=== PATIENT | male | born 1980 | race Caucasian/White ===

== ENCOUNTER 2016-06-16 09:24 | Emergency (ER) | payer OTHER ==
[~2016-06-16] VITALS: Ht 170.2 cm; Wt 68.0 kg
[~2016-06-16 09:24] MED LIST: ATIVAN1 MG PO; CELEXA10 MG PO; DEPAKENE250 MG/5 M PO; DILANTIN; DILANTIN100 M1 PO; DILANTIN100 MG PO; KEPPRA100 MG/ML PO; KEPPRA1000 MG PO; KEPPRA500 MG; KEPPRA750 MG PO; LEVAQUIN750 MG PO; PAROXETINE20 MG PO; PROPANOLOL; PROPRANOLOL ER80 MG PO; TEGRETOL; TEGRETOL200 M1 PO; TEGRETOL200 MG PO; TOPAMAX25 M1 PO
[2016-06-16 09:29] VITALS: BP 123/82
--- NOTE | 2016-06-16 09:29 | NUR ---
PT BIBA TO BED 5 AT THIS TIME.
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
[2016-06-16] MEDS ORDERED: NACL 0.9% 1,000 ML IV ONE (10:50)
[2016-06-16 14:57] VITALS: BP 120/67
--- NOTE | 2016-06-16 14:57 | NUR ---
Patient discharged with v/s stable. Written and verbal after care instructions given and explained to parent. Parent verbalized understanding. Wheel Chair Assisted with by parent. All questions addressed prior to discharge. Advised to follow up with PMD.
[2016-10-01] MEDS ORDERED: LEVAQUIN750 MG PO (13:57)
== END 2016-06-16 14:57 | disposition home or self-care (01) ==
LOC: MED 09:24
DX: R56.9 Unspecified convulsions (principal); E87.1 Hypo-osmolality and hyponatremia; Z91.013 Allergy to seafood; Z79.899 Other long term (current) drug therapy
CPT/HCPCS: 36415; 70450; 80053; 85025; 96360; 96361; 99285; J7030

== ENCOUNTER 2016-07-06 08:59 | Emergency (ER) | payer OTHER ==
[~2016-07-06] VITALS: Ht 177.8 cm; Wt 79.4 kg
--- NOTE | 2016-07-06 08:59 | NUR ---
Patient BIBA ACLS, transferred to bed 2. RN evaluating patient at bedside.
[2016-07-06 09:01] VITALS: BP 124/70
--- NOTE | 2016-07-06 09:01 | NUR ---
Dr. Salas evaluating patient at bedside.
[2016-07-06] MEDS ORDERED: NACL 0.9% 1,000 ML IV SCH (09:04)
--- NOTE | 2016-07-06 09:41 | NUR ---
PT TO CT
--- NOTE | 2016-07-06 09:55 | NUR ---
RETURNED FROM CT---LAB AT BEDSIDE
--- NOTE | 2016-07-06 10:42 | NUR ---
MOTHER AT BEDSIDE---REPORTS PT WAS POST ICTAL LONGER THAN SHE IS USE TO SEEING >5MINS AND MAKING A HUMMING SOUND. NO INJURIES. PT HAS SAME SEIZURE 1 EVERY 2-3 MONTHS OR LONG 6 MONTHS IN SOME TIMES. TAKING MEDICATION DAILY.
--- NOTE | 2016-07-06 10:50 | NUR ---
SPEAKING WITH MOTHER AT BEDSIDE.
--- NOTE | 2016-07-06 12:01 | NUR ---
semi-waterman's , remain awake alert without seizure activity noted. x2 sr up guerney low and locked. labs are resulted will ask of dispo.
[2016-07-06 12:24] VITALS: BP 124/63
--- NOTE | 2016-07-06 12:24 | NUR ---
Patient discharged with v/s stable. Written and verbal after care instructions given and explained. Patient verbalized understanding. Wheel Chair Assisted with to car. All questions addressed prior to discharge. Advised to follow up with PMD.
[2016-10-01] MEDS ORDERED: LEVAQUIN750 MG PO (13:57)
== END 2016-07-06 12:24 | disposition home or self-care (01) ==
LOC: MED 08:59
DX: R56.9 Unspecified convulsions (principal); Z87.820 Personal history of traumatic brain injury

== ENCOUNTER 2016-09-28 07:56 | Emergency (ER) | payer OTHER ==
[~2016-09-28] VITALS: Ht 177.8 cm; Wt 72.6 kg
--- NOTE | 2016-09-28 07:58 | NUR ---
Patient placed in bed 6 by EMS.
[2016-09-28 08:00] VITALS: BP 106/70
[2016-09-28] MEDS ORDERED: CELEXA10 MG PO (08:05)
[2016-09-28] MEDS ORDERED: TEGRETOL200 M1 PO (08:05)
[2016-09-28] MEDS ORDERED: KEPPRA750 MG PO (08:05)
--- NOTE | 2016-09-28 08:10 | NUR ---
36/M biba from home for evaluation s/p seizure. Per EMS, seizure lasted 2-3 minutes per the patient's mother. Patient is awake and alert, AOX3, speech is slow and delayed. Able to follow commands. Seizure pads applied to both rails. face and fill packer, pulse oximetry and blood pressure applied. VSS. Denies pain.
--- NOTE | 2016-09-28 08:31 | NUR ---
Patient taken to CT via gurney.
--- NOTE | 2016-09-28 09:05 | NUR ---
Mother at bedside. Dr. Heck made aware.
--- NOTE | 2016-09-28 09:06 | NUR ---
Dr. Heck at bedside.
[2016-09-28] MEDS: levETIRAcetam 1,000 MG in NACL 0.9% 100 ML IV SCH (09:20)
--- NOTE | 2016-09-28 10:05 | NUR ---
URINAL PROVIDED. PT PLACED IN POSITION OF COMFORT. WARM BLANKETS PROVIDED. NO DISTRESS NOTED. VSS.
--- NOTE | 2016-09-28 10:39 | NUR ---
Patient appears to be resting comfortably in bed. Vital Signs within normal limits. Respirations even and unlabored.
--- NOTE | 2016-09-28 11:19 | NUR ---
Dr. Heck re-evaluating patient at bedside. Mother at bedside. Patient eating lunch, tolerating well.
--- NOTE | 2016-09-28 11:30 | NUR ---
IV removed, catheter intact and site benign. Applied folded 4x4 gauze and tape to stop bleeding.
[2016-09-28 11:46] VITALS: BP 122/80
--- NOTE | 2016-09-28 20:05 | NUR ---
DR. GREEN ORDERED HHN BUT [facility] STATES PATIENT IS DEPARTED. PATIENT IS IN ER BED #5 BEING TRANSFERED TO ROOM 110A. NO RESPIRATORY MEDICATION ORDERS IN SYSTEM AT THIS TIME
[2016-10-01] MEDS ORDERED: LEVAQUIN750 MG PO (13:57)
== END 2016-09-28 11:46 | disposition home or self-care (01) ==
LOC: MED 07:56
DX: R56.9 Unspecified convulsions (principal); Z91.013 Allergy to seafood
CPT/HCPCS: 36415; 70450; 80053; 80173; 81003; 85025; 93005; 96365; 99285; J1953

== ENCOUNTER 2016-09-28 17:56 | Inpatient (IN) | payer OTHER ==
[~2016-09-28] VITALS: Ht 177.8 cm; Wt 71.7 kg
[~2016-09-28 17:56] MED LIST changes: -ATIVAN1 MG PO; +CARB200T1 PO; -CELEXA10 MG PO; +CITA10TA11 PO; -DEPAKENE250 MG/5 M PO; -DILANTIN; -DILANTIN100 M1 PO; -DILANTIN100 MG PO; +KEP500L PO; -KEPPRA100 MG/ML PO; -KEPPRA1000 MG PO; -KEPPRA500 MG; -KEPPRA750 MG PO; -LEVAQUIN750 MG PO; +LEVE750T3 PO; +LEVO750T2 PO; -PAROXETINE20 MG PO; -PROPANOLOL; -PROPRANOLOL ER80 MG PO; -TEGRETOL; -TEGRETOL200 M1 PO; -TEGRETOL200 MG PO; -TOPAMAX25 M1 PO; +TOPI25CA PO; +VALP250S2 PO
[2016-09-28 18:05] VITALS: BP 145/96
[2016-09-28] MEDS ORDERED: VANCOMYCIN 1,000 MG in DEXTROSE 5% 250 ML IV ONE (18:15)
[2016-09-28] MEDS ORDERED: NACL 0.9% 1,000 ML IV ONE (18:15)
[2016-09-28] MEDS ORDERED: LORazepam 2 MG/ML VIAL IVP ONE (18:30)
[2016-09-28] MEDS ORDERED: VANCOMYCIN 1,000 MG VIAL ONE ×2 (18:44→19:51)
[2016-09-28] MEDS ORDERED: cefTRIAXone 1,000 MG VIAL ONE ×2 (18:44→19:51)
[2016-09-28 18:47] LABS: HEMATOCRIT 43.8 % (36-52); HEMOGLOBIN 14.7 g/dL (12.0-18.0); MEAN CORPUSCULAR HEMOGLOBIN 31 pg (27-31); MEAN CORPUSCULAR HGB CONC 34 g/dL (33-37); MEAN CORPUSCULAR VOLUME 92 fL (80-94); PLATELET COUNT (AUTO) 351 K/uL (140-450); RED BLOOD CELL COUNT(AUTO) 4.76 MIL/uL (4.20-6.10); RED CELL DISTRIBUTION WIDTH 12.7 % (11.6-13.7); WHITE BLOOD COUNT (AUTO) 12.3 K/uL (4.8-10.8)
[2016-09-28 18:59] LABS: ANION GAP 13.2 (8-16); CALCIUM 8.8 mg/dL (8.5-10.1); CARBON DIOXIDE 25.9 mmol/L (21-32); CREATININE 0.8 mg/dL (0.6-1.3); POTASSIUM 4.1 mmol/L (3.5-5.1)
[2016-09-28 19:05] LABS: ALBUMIN 4.1 g/dL (3.4-5.0); TOTAL BILIRUBIN 0.3 mg/dL (0.0-1.0); TOTAL PROTEIN, SERUM 8.4 g/dL (6.4-8.2)
[2016-09-28] MEDS ORDERED: ACETAMINOPHEN 650 MG SUPP RC ONE (19:05)
[2016-09-28 19:06] LABS: BAND % (MANUAL) 1 % (0-8); LYMPHOCYTES % (MANUAL) 4 % (20-46); MONOCYTES % (MANUAL) 8 % (5-12); NEUTROPHILS % (MANUAL) 87 (43-65); PLATELET ESTIMATE ADEQUATE
[2016-09-28] MEDS ORDERED: ACETAMINOPHEN 325 MG SUPP RC ONE (19:07)
[2016-09-28 19:15] LABS: LACTIC ACID 1.9 mmol/L (0.4-2.0)
[2016-09-28] MEDS ORDERED: POTASSIUM CHLORIDE 40 MEQ, LIDOCAINE 1% 25 MG in NACL 0.9% 250 ML IV PRN (19:55)
[2016-09-28] MEDS ORDERED: MAGNESIUM OXIDE 400 MG TAB PO PRN (19:55)
[2016-09-28] MEDS ORDERED: ALBUTEROL 0.083% 2.5 MG/3 ML NEBU INH PRN ×2 (19:55→23:40)
[2016-09-28] MEDS ORDERED: ACETAMINOPHEN 650 MG SUPP RC PRN (19:55)
[2016-09-28] MEDS ORDERED: diphenhydrAMINE 50 MG/ML VIAL IVP PRN (19:55)
[2016-09-28] MEDS ORDERED: HYDROcodone/APAP 5/325 MG 1 TAB TAB PO PRN ×2 (19:55)
[2016-09-28] MEDS ORDERED: cloNIDine 0.1 MG TAB PO PRN (19:55)
[2016-09-28] MEDS ORDERED: IPRATROPIUM 0.02% 0.5 MG/2.5 ML NEBU INH PRN (19:55)
[2016-09-28] MEDS ORDERED: BISACODYL 10 MG SUPP RC PRN (19:55)
[2016-09-28] MEDS ORDERED: MAG SULF 2000 MG/WATER PREMIX 50 ML IV PRN (19:55)
[2016-09-28] MEDS ORDERED: MORPHINE SULFATE 2 MG/ML SYR IVP PRN (19:55)
[2016-09-28] MEDS ORDERED: DOCUSATE SODIUM 250 MG GELCAP PO PRN (19:55)
[2016-09-28] MEDS ORDERED: ACETAMINOPHEN 325 MG TAB PO PRN (19:55)
[2016-09-28] MEDS ORDERED: POTASSIUM CHLORIDE 10 MEQ TABER PO PRN (19:55)
[2016-09-28] MEDS ORDERED: guaiFENesin DM 200/20 MG-10 ML 10 ML UDC PO PRN (19:55)
[2016-09-28] MEDS ORDERED: ALUMINUM HYD/MAG/SIMETHICONE 30 ML UDC PO PRN (19:55)
[2016-09-28] MEDS ORDERED: ONDANSETRON 4 MG/2 ML VIAL IVP PRN (19:55)
[2016-09-28] MEDS ORDERED: SODIUM PHOSPHATE 118 ML ENEM RC PRN (19:55)
[2016-09-28] MEDS ORDERED: VANCOMYCIN PER PHARMACY MC PRN (20:00)
[2016-09-28] MEDS ORDERED: LORazepam 2 MG/ML VIAL IVP PRN (20:00)
[2016-09-28 20:30] VITALS: BP 122/84
[2016-09-28 21:10] VITALS: BP 120/86
[2016-09-28] MEDS: LORazepam 2 MG/ML VIAL IVP PRN (22:29)
[2016-09-28] MEDS: levETIRAcetam 500 MG TAB PO SCH (22:32)
[2016-09-29 00:38] VITALS: BP 116/71
[2016-09-29 04:00] VITALS: BP 131/68
[2016-09-29 08:00] VITALS: BP 106/63
[2016-09-29] MEDS ORDERED: VANCOMYCIN 1GM/DEXT 5% PREMIX 200 ML IV ONE (08:00)
[2016-09-29] MEDS: CITALOPRAM 20 MG TAB PO SCH (08:52)
[2016-09-29] MEDS: carBAMazepine 200 MG TAB PO SCH ×3 (08:52→17:48)
[2016-09-29] MEDS: levETIRAcetam 500 MG TAB PO SCH ×2 (08:52→21:21)
[2016-09-29] MEDS: cefTRIAXone 2,000 MG in DEXTROSE 5% 100 ML IV SCH (09:00)
[2016-09-29 12:00] VITALS: BP 132/74
[2016-09-29 16:00] VITALS: BP 123/70
[2016-09-29] MEDS ORDERED: MORPHINE SULFATE 2 MG/ML SYR IVP PRN (17:30)
[2016-09-29] MEDS ORDERED: LORazepam 2 MG/ML VIAL IVP PRN (17:30)
[2016-09-29 20:00] VITALS: BP 118/70
[2016-09-29] MEDS: VANCOMYCIN 1GM/DEXT 5% PREMIX 200 ML IV SCH (21:20)
[2016-09-30 04:00] VITALS: BP 109/56
[2016-09-30 07:50] VITALS: BP 109/57
[2016-09-30] MEDS: carBAMazepine 200 MG TAB PO SCH ×3 (08:58→16:13)
[2016-09-30] MEDS: CITALOPRAM 20 MG TAB PO SCH (08:59)
[2016-09-30] MEDS: levETIRAcetam 500 MG TAB PO SCH ×2 (08:59→20:25)
[2016-09-30] MEDS: cefTRIAXone 2,000 MG in DEXTROSE 5% 100 ML IV SCH (09:00)
[2016-09-30 09:06] LABS: BASOPHILS # (AUTO) 0.1 K/uL (0.00-0.22); BASOPHILS % (AUTO) 1.3 % (0.0-2.0); EOSINOPHILS # (AUTO) 0.1 K/uL (0-0.4); EOSINOPHILS % (AUTO) 1.9 % (0.0-4.0); HEMATOCRIT 45.3 % (36-52); HEMOGLOBIN 14.8 g/dL (12.0-18.0); LYMPHOCYTES # (AUTO) 0.9 K/uL (2.0-11.5); LYMPHOCYTES % (AUTO) 14.4 % (20.5-51.1); MEAN CORPUSCULAR HEMOGLOBIN 30 pg (27-31); MEAN CORPUSCULAR HGB CONC 33 g/dL (33-37); MEAN CORPUSCULAR VOLUME 93 fL (80-94); MONOCYTES # (AUTO) 0.4 K/uL (0.8-1.0); MONOCYTES % (AUTO) 6.8 % (1.7-9.3); NEUTROPHILS # (AUTO) 4.5 K/uL (1.8-7.7); NEUTROPHILS % (AUTO) 75.6 % (42.2-75.2); PLATELET COUNT (AUTO) 276 K/uL (140-450); RED BLOOD CELL COUNT(AUTO) 4.87 MIL/uL (4.20-6.10); RED CELL DISTRIBUTION WIDTH 12.9 % (11.6-13.7)
[2016-09-30 09:27] LABS: ALBUMIN 3.8 g/dL (3.4-5.0); ANION GAP 14.3 (8-16); CALCIUM 8.8 mg/dL (8.5-10.1); CARBON DIOXIDE 24.4 mmol/L (21-32); POTASSIUM 3.7 mmol/L (3.5-5.1); TOTAL BILIRUBIN 0.3 mg/dL (0.0-1.0); TOTAL PROTEIN, SERUM 8.2 g/dL (6.4-8.2)
[2016-09-30] MEDS: VANCOMYCIN 1GM/DEXT 5% PREMIX 200 ML IV SCH ×2 (10:32→20:25)
[2016-09-30] MEDS ORDERED: NACL 0.9% 500 ML IV SCH (11:15)
[2016-09-30 12:00] VITALS: BP 122/71
[2016-09-30 16:00] VITALS: BP 134/69
[2016-09-30 20:00] VITALS: BP 112/64
[2016-09-30] MEDS: LORazepam 2 MG/ML VIAL IVP PRN (20:25)
[2016-10-01] VITALS: BP 97/51
[2016-10-01 04:00] VITALS: BP 93/62
[2016-10-01 07:40] LABS: HEMATOCRIT 46.1 % (36-52); HEMOGLOBIN 14.7 g/dL (12.0-18.0); MEAN CORPUSCULAR HEMOGLOBIN 30 pg (27-31); MEAN CORPUSCULAR HGB CONC 32 g/dL (33-37); MEAN CORPUSCULAR VOLUME 95 fL (80-94); PLATELET COUNT (AUTO) 214 K/uL (140-450); RED BLOOD CELL COUNT(AUTO) 4.85 MIL/uL (4.20-6.10); RED CELL DISTRIBUTION WIDTH 13.1 % (11.6-13.7)
[2016-10-01 08:00] VITALS: BP 111/70
[2016-10-01 08:10] LABS: BAND % (MANUAL) 1 % (0-8); EOSINOPHILS % (MANUAL) 2 % (0-4); LYMPHOCYTES % (MANUAL) 25 % (20-46); MONOCYTES % (MANUAL) 8 % (5-12); NEUTROPHILS % (MANUAL) 64 (43-65); PLATELET ESTIMATE ADEQUATE
[2016-10-01] MEDS ORDERED: VANCOMYCIN 1,250 MG in DEXTROSE 5% 250 ML IV SCH (09:00)
[2016-10-01] MEDS: cefTRIAXone 2,000 MG in DEXTROSE 5% 100 ML IV SCH (09:00)
[2016-10-01] MEDS: CITALOPRAM 20 MG TAB PO SCH (09:48)
[2016-10-01] MEDS: carBAMazepine 200 MG TAB PO SCH ×3 (09:49→18:00)
[2016-10-01] MEDS: levETIRAcetam 500 MG TAB PO SCH (09:49)
[2016-10-01 12:00] VITALS: BP 116/69
[2016-10-01] MEDS ORDERED: LEVO750T2 PO (13:57)
[2016-10-01 16:00] VITALS: BP 126/63
[2016-10-01 16:13] VITALS: BP 126/63
== END 2016-10-01 18:48 | disposition home or self-care (01) | DRG 23 ==
LOC: MED 17:56 → MTU 19:54
PROVIDERS: ADMIT Hospitalist; ATTEND Hospitalist
PROC: 00JU3ZZ Inspection of Spinal Canal, Percutaneous Approach (ICD-10-PCS; principal; 2016-09-30)
PROC: B01B1ZZ Fluoroscopy of Spinal Cord using Low Osmolar Contrast (ICD-10-PCS; 2016-09-30)
DX: G03.9 Meningitis, unspecified (principal); G93.40 Encephalopathy, unspecified; G40.409 Other generalized epilepsy and epileptic syndromes, not intractable, without status epilepticus; E87.1 Hypo-osmolality and hyponatremia; F79 Unspecified intellectual disabilities; F41.9 Anxiety disorder, unspecified; F32.9 Major depressive disorder, single episode, unspecified; R73.9 Hyperglycemia, unspecified; Z87.820 Personal history of traumatic brain injury
CPT/HCPCS: 36415; 71010; 77003; 80053; 80202; 83605; 85025; 87040; 87081; 94640; 96365; 96375; 99285; J0696; J2060; J2270; J3370; J7030; J7060; J7613; J7644; Q0092

== ENCOUNTER 2016-11-21 15:35 | Emergency (ER) | payer OTHER ==
[~2016-11-21] VITALS: Ht 175.3 cm; Wt 76.7 kg
[~2016-11-21 15:35] MED LIST changes: -KEP500L PO; -TOPI25CA PO; -VALP250S2 PO
[2016-11-21 15:42] VITALS: BP 108/61
--- NOTE | 2016-11-21 19:13 | NUR ---
Patient to bed 06.
--- NOTE | 2016-11-21 19:18 | NUR ---
Dr. Packer evaluating patient at bedside.
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
[2016-11-21 19:41] VITALS: BP 108/61
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
== END 2016-11-21 19:30 | disposition home or self-care (01) ==
LOC: MED 15:35
DX: S01.112D Laceration without foreign body of left eyelid and periocular area, subsequent encounter (principal); Z91.013 Allergy to seafood; X58.XXXD Exposure to other specified factors, subsequent encounter; Y92.89 Other specified places as the place of occurrence of the external cause; Y99.8 Other external cause status
CPT/HCPCS: 99281

== ENCOUNTER 2020-11-10 16:25 | Emergency (ER) | payer OTHER ==
[~2020-11-10] VITALS: Ht 167.6 cm; Wt 70.3 kg
--- NOTE | 2020-11-10 16:25 | NUR ---
PT BIBA AND PLACED IN BED 4.
[2020-11-10 16:49] VITALS: BP 121/67
--- NOTE | 2020-11-10 16:56 | NUR ---
PER FAMILY PT USED TO TAKE KEPPRA 750MG BID, NOW IT IS 500MG BID.
--- NOTE | 2020-11-10 16:58 | NUR ---
MOTHER NUMBER: [phone]
[2020-11-10] MEDS ORDERED: KEP500 PO (17:04)
[2020-11-10 17:25] LABS: BASOPHILS % (AUTO) 0.6 % (0.0-2.0); EOSINOPHILS # (AUTO) 0.1 K/uL (0-0.4); EOSINOPHILS % (AUTO) 0.7 % (0.0-4.0); HEMATOCRIT 44.4 % (36-52); HEMOGLOBIN 15.2 g/dL (12.0-18.0); LYMPHOCYTES # (AUTO) 0.8 K/uL (2.0-11.5); LYMPHOCYTES % (AUTO) 10.2 % (20.5-51.1); MEAN CORPUSCULAR HEMOGLOBIN 33 pg (27-31); MEAN CORPUSCULAR HGB CONC 34 g/dL (33-37); MONOCYTES # (AUTO) 0.9 K/uL (0.8-1.0); MONOCYTES % (AUTO) 12.2 % (1.7-9.3); NEUTROPHILS # (AUTO) 5.7 K/uL (1.8-7.7); NEUTROPHILS % (AUTO) 76.3 % (42.2-75.2); PLATELET COUNT (AUTO) 385 K/uL (140-450); RED BLOOD CELL COUNT(AUTO) 4.67 MIL/uL (4.20-6.10); RED CELL DISTRIBUTION WIDTH 13.4 % (11.6-13.7); WHITE BLOOD COUNT (AUTO) 7.5 K/uL (4.8-10.8)
[2020-11-10] MEDS ORDERED: levETIRAcetam 100 MG/ML ORASYR PO ONE (17:40)
[2020-11-10 17:47] LABS: ALBUMIN 4.3 g/dL (3.4-5.0); ANION GAP 11.9 (8-16); CARBON DIOXIDE 25.5 mmol/L (21-32); CREATININE 0.8 mg/dL (0.6-1.3); POTASSIUM 4.4 mmol/L (3.5-5.1); TOTAL BILIRUBIN 0.3 mg/dL (0.0-1.0)
[2020-11-10 18:47] VITALS: BP 119/39
--- NOTE | 2020-11-10 19:15 | NUR ---
Patient discharged with v/s stable. Written and verbal after care instructions given and explained. Patient verbalized understanding. Wheel Chair Assisted with by ER staff. All questions addressed prior to discharge. Advised to follow up with PMD.
== END 2020-11-10 19:15 | disposition home or self-care (01) ==
LOC: MED 16:25
DX: R56.9 Unspecified convulsions (principal); Z79.899 Other long term (current) drug therapy
CPT/HCPCS: 36415; 80053; 85025; 99283

== ENCOUNTER 2021-01-24 19:54 | Emergency (ER) | payer OTHER ==
[~2021-01-24] VITALS: Ht 175.3 cm; Wt 79.4 kg
[2021-01-24 19:54] VITALS: BP 134/83
[~2021-01-24 19:54] MED LIST changes: +KEP500 PO; -LEVE750T3 PO; -LEVO750T2 PO
--- NOTE | 2021-01-24 19:54 | NUR ---
JANIS SIMMONS FROM HOME, PT. IS A 40 Y/O MALE THAT CAME INTO ED WITH C/O OF SEIZURES. PER EMS, FAMILY STATES THAT HE HAD 2 FOCAL SEIZURES TODAY WITH THE LAST ONE AT 1900. DENIES TRAUMA/FALL. BEFORE TODAY, HIS LAST SEIZURE WAS IN AUGUST. PT. DENIES PAIN AT THIS TIME. DENIES N/V/D; SKIN IS PINK/WARM/DRY; HR EVEN AND REGULAR; PT DENIES ANY FEVER, CP, SOB, OR COUGH AT THIS TIME; VSS; PATIENT POSITIONED FOR COMFORT; HOB ELEVATED; BEDRAILS UP X2; BED DOWN. ER MD MADE AWARE OF PT STATUS.
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
[2021-01-24] MEDS ORDERED: carBAMazepine 200 MG TAB PO ONE (20:35)
[2021-01-24] MEDS ORDERED: levETIRAcetam 500 MG TAB PO ONE (20:35)
--- NOTE | 2021-01-24 20:56 | NUR ---
LAB AT BEDSIDE
--- NOTE | 2021-01-24 21:28 | NUR ---
PT. ASSISTED WITH URINAL, VOICES NO COMPLAINTS AT THIS TIME.
[2021-01-24 21:53] LABS: ANION GAP 11.8 (8-16); CARBON DIOXIDE 26.5 mmol/L (21-32); CREATININE 0.8 mg/dL (0.6-1.3); POTASSIUM 4.3 mmol/L (3.5-5.1)
[2021-01-24 22:52] VITALS: BP 134/83
--- NOTE | 2021-01-24 22:52 | NUR ---
Patient discharged with v/s stable. Written and verbal after care instructions given and explained. Patient verbalized understanding. Wheel Chair Assisted to car. All questions addressed prior to discharge. Advised to follow up with PMD.
== END 2021-01-24 22:52 | disposition home or self-care (01) ==
LOC: MED 19:54
DX: R56.9 Unspecified convulsions (principal); Z79.899 Other long term (current) drug therapy
CPT/HCPCS: 36415; 80048; 80156; 83735; 99283

== ENCOUNTER 2023-10-16 16:39 | Inpatient (IN) | payer OTHER ==
[~2023-10-16] VITALS: Ht 170.2 cm; Wt 77.1 kg
[2023-10-16] MEDS: CALCIUM CHLORIDE 10% 1,000 MG in NACL 0.9% 100 ML IV ONE (13:00)
[2023-10-16 16:51] VITALS: BP 112/67; PULSE 70; RESP 18; TEMP 98.5; O2SAT 98
[2023-10-16 19:44] LABS: APPEARANCE,URINE CLEAR (CLEAR); BILIRUBIN,URINE 1+ (NEGATIVE); BLOOD, URINE 3+ (NEGATIVE); COLOR,URINE YELLOW (YELLOW); LEUKOCYTE ESTERASE ,URINE NEGATIVE (NEGATIVE); NITRITE, URINE NEGATIVE (NEGATIVE); PROTEIN,URINE 1+ (NEGATIVE); UGLUCOSE NEGATIVE (NEGATIVE)
[2023-10-16 20:11] LABS: BACTERIA,URINE 10-30 (MOD) /HPF (None Seen); ICTOTEST POSITIVE (NEGATIVE); MUCUS,URINE None Seen /LPF (None Seen); RBC,URINE TOO NUMEROUS TO COUN /HPF (0-5); SQUAMOUS EPITHELIAL CELL,UR None Seen /LPF (0-3 (FEW)); YEAST,URINE None Seen /HPF (None Seen)
[2023-10-16 20:12] LABS: TRICHOMONAS,URINE None Seen /HPF (None Seen); WHITE BLOOD CELL CASTS,URINE None Seen /LPF (None Seen)
[2023-10-16 20:50] VITALS: O2SAT 96
[2023-10-16] MEDS: carBAMazepine 200 MG TAB PO ONE (20:58)
[2023-10-16] MEDS: levETIRAcetam 500 MG TAB PO ONE (20:58)
[2023-10-16 21:01] LABS: BASOPHILS # (AUTO) 0.2 K/uL (0.00-0.22); BASOPHILS % (AUTO) 2.3 % (0.0-2.0); EOSINOPHILS # (AUTO) 0.3 K/uL (0-0.4); EOSINOPHILS % (AUTO) 3.1 % (0.0-4.0); HEMATOCRIT 41.6 % (36-52); HEMOGLOBIN 14.5 g/dL (12.0-18.0); LYMPHOCYTES # (AUTO) 2.1 K/uL (2.0-11.5); LYMPHOCYTES % (AUTO) 24.6 % (20.5-51.1); MEAN CORPUSCULAR HEMOGLOBIN 33 pg (27-31); MEAN CORPUSCULAR HGB CONC 35 g/dL (33-37); MEAN CORPUSCULAR VOLUME 94.5 fL (80-94); MONOCYTES % (AUTO) 12.1 % (1.7-9.3); NEUTROPHILS # (AUTO) 4.8 K/uL (1.8-7.7); NEUTROPHILS % (AUTO) 57.9 % (42.2-75.2); PLATELET COUNT (AUTO) 316 K/uL (140-450); RED CELL DISTRIBUTION WIDTH 13.7 % (11.6-13.7); WHITE BLOOD COUNT (AUTO) 8.3 K/uL (4.8-10.8)
[2023-10-16 21:53] LABS: ALBUMIN 3.4 g/dL (3.4-5.0); TOTAL BILIRUBIN 0.3 mg/dL (0.0-1.0); TOTAL PROTEIN, SERUM 7.6 g/dL (6.4-8.2)
[2023-10-16 22:41] LABS: ANION GAP 19.3 (8-16); CARBON DIOXIDE 21.5 mmol/L (21-32); CREATININE 0.6 mg/dL (0.6-1.3)
[2023-10-16 22:48] LABS: POTASSIUM 7.8 mmol/L (3.5-5.1)
[2023-10-16 22:49] LABS: CALCIUM 4.7 mg/dL (8.5-10.1)
[2023-10-16] MEDS ORDERED: NACL 0.9% 1,000 ML IV ONE (23:00)
[2023-10-16] MEDS ORDERED: LEVE250T1 PO (23:09)
[2023-10-16] MEDS ORDERED: CARB200T1 PO (23:09)
[2023-10-16 23:10] VITALS: O2SAT 96
[2023-10-16] MEDS: SODIUM ZIRCONIUM CYCLOSILICATE 10 GM POWD.PACK PO ONE (23:50)
[2023-10-17] MEDS ORDERED: ONDANSETRON 4 MG/2 ML VIAL IVP PRN (00:35)
[2023-10-17] MEDS ORDERED: LORazepam 1 MG TAB PO PRN (00:35)
[2023-10-17] MEDS ORDERED: ACETAMINOPHEN 325 MG TAB PO PRN (00:35)
[2023-10-17] MEDS ORDERED: HYDROcodone/APAP 5/325 MG 1 TAB TAB PO PRN (00:35)
[2023-10-17] MEDS ORDERED: ZOLPIDEM 5 MG TAB PO PRN (00:35)
[2023-10-17] MEDS ORDERED: NACL 0.9% 1,000 ML IV ONE (00:35)
[2023-10-17 03:15] VITALS: O2SAT 97
[2023-10-17 05:18] VITALS: O2SAT 97
[2023-10-17 08:10] VITALS: PULSE 54; O2SAT 97
[2023-10-17 10:13] LABS: BASOPHILS % (AUTO) 0.8 % (0.0-2.0); EOSINOPHILS # (AUTO) 0.2 K/uL (0-0.4); EOSINOPHILS % (AUTO) 3.7 % (0.0-4.0); HEMATOCRIT 41.8 % (36-52); HEMOGLOBIN 14.4 g/dL (12.0-18.0); LYMPHOCYTES # (AUTO) 1.4 K/uL (2.0-11.5); LYMPHOCYTES % (AUTO) 33.6 % (20.5-51.1); MEAN CORPUSCULAR HEMOGLOBIN 33 pg (27-31); MEAN CORPUSCULAR HGB CONC 34 g/dL (33-37); MEAN CORPUSCULAR VOLUME 95.5 fL (80-94); MONOCYTES # (AUTO) 0.5 K/uL (0.8-1.0); MONOCYTES % (AUTO) 12.6 % (1.7-9.3); NEUTROPHILS % (AUTO) 49.3 % (42.2-75.2); PLATELET COUNT (AUTO) 302 K/uL (140-450); RED BLOOD CELL COUNT(AUTO) 4.38 MIL/uL (4.20-6.10); RED CELL DISTRIBUTION WIDTH 13.4 % (11.6-13.7); WHITE BLOOD COUNT (AUTO) 4.1 K/uL (4.8-10.8)
[2023-10-17 10:31] LABS: ALBUMIN 3.3 g/dL (3.4-5.0); ANION GAP 8.5 (8-16); CARBON DIOXIDE 30.9 mmol/L (21-32); CREATININE 0.8 mg/dL (0.6-1.3); POTASSIUM 4.4 mmol/L (3.5-5.1); TOTAL BILIRUBIN 0.3 mg/dL (0.0-1.0); TOTAL PROTEIN, SERUM 7.4 g/dL (6.4-8.2)
[2023-10-17 12:00] VITALS: BP 134/81; PULSE 56; PULSE 59; RESP 18; TEMP 97.6; O2SAT 99
[2023-10-17] MEDS: carBAMazepine 200 MG TAB PO SCH (13:00)
[2023-10-17] MEDS: levETIRAcetam 500 MG TAB PO SCH (15:49)
[2023-10-17] MEDS: DOCUSATE SODIUM 100 MG GELCAP PO SCH (15:50)
[2023-10-17] MEDS: CITALOPRAM 20 MG TAB PO SCH (15:51)
[2023-10-17 16:00] VITALS: BP 119/73; PULSE 63; PULSE 69; RESP 18; TEMP 98.2; O2SAT 99
[2023-10-17] MEDS ORDERED: CEPH-588 PO (16:21)
[2023-10-17 20:00] VITALS: BP 161/90; PULSE 68; PULSE 72; RESP 19; TEMP 97.4; O2SAT 99
[2023-10-18 04:00] VITALS: BP 127/77; PULSE 54; PULSE 59; RESP 19; TEMP 97.4; O2SAT 97
[2023-10-18 08:00] VITALS: BP 130/61; PULSE 52; PULSE 62; RESP 17; TEMP 97.2; O2SAT 99
[2023-10-18 11:29] LABS: BASOPHILS % (AUTO) 0.5 % (0.0-2.0); EOSINOPHILS # (AUTO) 0.1 K/uL (0-0.4); EOSINOPHILS % (AUTO) 3.9 % (0.0-4.0); HEMATOCRIT 42.1 % (36-52); HEMOGLOBIN 14.4 g/dL (12.0-18.0); LYMPHOCYTES # (AUTO) 1.2 K/uL (2.0-11.5); LYMPHOCYTES % (AUTO) 35.2 % (20.5-51.1); MEAN CORPUSCULAR HEMOGLOBIN 33 pg (27-31); MEAN CORPUSCULAR HGB CONC 34 g/dL (33-37); MEAN CORPUSCULAR VOLUME 95.7 fL (80-94); MONOCYTES # (AUTO) 0.4 K/uL (0.8-1.0); MONOCYTES % (AUTO) 12.3 % (1.7-9.3); NEUTROPHILS # (AUTO) 1.6 K/uL (1.8-7.7); NEUTROPHILS % (AUTO) 48.1 % (42.2-75.2); PLATELET COUNT (AUTO) 320 K/uL (140-450); RED CELL DISTRIBUTION WIDTH 13.4 % (11.6-13.7); WHITE BLOOD COUNT (AUTO) 3.3 K/uL (4.8-10.8)
[2023-10-18 11:47] LABS: ALBUMIN 3.3 g/dL (3.4-5.0); ANION GAP 8.6 (8-16); CARBON DIOXIDE 31.3 mmol/L (21-32); CREATININE 0.7 mg/dL (0.6-1.3); POTASSIUM 3.9 mmol/L (3.5-5.1); TOTAL BILIRUBIN 0.3 mg/dL (0.0-1.0); TOTAL PROTEIN, SERUM 7.6 g/dL (6.4-8.2)
[2023-10-18 12:00] VITALS: PULSE 62
== END 2023-10-18 15:20 | disposition home or self-care (01) | DRG 468 ==
LOC: MED 16:39 → MTU 10-17 01:07 → MMU 10-17 01:07 → MTU 10-17 14:24
PROVIDERS: ADMIT Hospitalist; ATTEND Hospitalist
DX: R31.9 Hematuria, unspecified (principal); G40.909 Epilepsy, unspecified, not intractable, without status epilepticus; Z79.899 Other long term (current) drug therapy; Z87.820 Personal history of traumatic brain injury; Z90.49 Acquired absence of other specified parts of digestive tract; Z91.013 Allergy to seafood
CPT/HCPCS: 36415; 80048; 80053; 80076; 81001; 82550; 83690; 83735; 85025; 87081; 87086; 93005; 99285; J0696; J3490; J7060